=== PATIENT | male | born 1935 | race Two or more races ===

== ENCOUNTER 2019-05-22 06:01 | Day surgery (SDC) | payer OTHER ==
[~2019-05-22] VITALS: Ht 177.8 cm; Wt 104.3 kg
[~2019-05-22 06:01] MED LIST: CARB10TA7 PO; HYDR-531 PO; LEVO75TA6 PO; SIMV-13 PO
[2019-05-22] MEDS ORDERED: CIPROFLOXACIN 400MG/200ML 200 ML IV ONE (07:06)
[2019-05-22 10:38] VITALS: BP 118/68
== END 2019-05-22 10:56 | disposition home or self-care (01) ==
LOC: SUR 06:01
PROVIDERS: ATTEND Anesthesiology
DX: M48.062 Spinal stenosis, lumbar region with neurogenic claudication (principal); E11.69 Type 2 diabetes mellitus with other specified complication; E11.22 Type 2 diabetes mellitus with diabetic chronic kidney disease; I12.9 Hypertensive chronic kidney disease with stage 1 through stage 4 chronic kidney disease, or unspecified chronic kidney disease; N18.3 Chronic kidney disease, stage 3 (moderate); E78.2 Mixed hyperlipidemia; I70.0 Atherosclerosis of aorta; I25.2 Old myocardial infarction; E03.9 Hypothyroidism, unspecified; G47.33 Obstructive sleep apnea (adult) (pediatric); G25.81 Restless legs syndrome; G20 Parkinson's disease; E66.9 Obesity, unspecified; I25.10 Atherosclerotic heart disease of native coronary artery without angina pectoris; F11.10 Opioid abuse, uncomplicated; Z79.899 Other long term (current) drug therapy; Z88.0 Allergy status to penicillin; Z90.49 Acquired absence of other specified parts of digestive tract; Z95.818 Presence of other cardiac implants and grafts; Z98.890 Other specified postprocedural states; Z68.33 Body mass index [BMI] 33.0-33.9, adult
CPT/HCPCS: 22869; 22870; 71045; 72100; 82962; C1821; J0744; J7030; 76001; A4565